=== PATIENT | female | born 1995 | race Two or more races ===

== ENCOUNTER 2023-03-19 08:15 | Emergency (ER) | payer OTHER ==
[~2023-03-19] VITALS: Ht 160 cm; Wt 67.1 kg
[2023-03-19 11:12] LABS: HEMATOCRIT 39.4 % (36.0-45.00); HEMOGLOBIN 13.4 g/dL (12.0-15.00); MEAN CELL VOLUME 94.8 fL (80.00-100.00); MEAN CORPUSCULAR HEMOGLOBIN 32.3 pg (27.00-32.0); PLATELET COUNT 252 K/uL (150-450); RED BLOOD COUNT 4.15 M/uL (4.00-6.00); RED CELL DISTRIBUTION WIDTH 12.1 % (11.5-14.5)
[2023-03-19] MEDS ORDERED: ALLEGRA-D 24 H1 EACH PO (12:33)
[2023-03-19] MEDS ORDERED: TUSNEL DM LIQU473 ML PO (12:33)
[2023-03-19] MEDS ORDERED: FLONASE ALLERG9.9 ML NASAL (12:33)
== END 2023-03-19 14:20 | disposition home or self-care (01) ==
LOC: ER 08:16
PROVIDERS: General Practice
DX: B34.9 Viral infection, unspecified (principal); R68.89 Other general symptoms and signs; Z20.822 Contact with and (suspected) exposure to COVID-19